=== PATIENT | male | born 1960 | race Caucasian/White ===

== ENCOUNTER 2016-08-14 10:29 | Inpatient (IN) | payer SELFPAY ==
[~2016-08-14] VITALS: Ht 172.7 cm; Wt 81.6 kg
[~2016-08-14 10:29] MED LIST: IOHEXOL-300 100 ML BOTTLE ONE; SODIUM CHLORIDE 0.9% 10ML VIAL ONE
[2016-08-14] MEDS ORDERED: SODIUM CHLORIDE 0.9% 1,000 ML IV ONE (11:05)
[2016-08-14 11:25] LABS: BASOPHILS % 0.3 % (0.0-2.0); EOSINOPHILS % 0.1 % (0.0-5.0); HEMATOCRIT. 39.3 % (42.0-52.0); LYMPHOCYTES % 11.4 % (20.0-50.0); MEAN CORPUSCULAR HEMOGLOBIN 25.8 pg (28.0-32.0); MEAN CORPUSCULAR VOLUME 78.1 fL (80.0-94.0); MEAN PLATELET VOLUME 8.7 fl (7.4-10.4); MONOCYTES % 9.3 % (2.0-8.0); NEUTROPHILS % 78.9 % (40.0-76.0); PLATELET 159 x1000/uL (130-400); RED BLOOD CELL COUNT 5.03 mill/uL (4.7-6.1); RED CELL DISTRIBUTION WIDTH 14.9 % (11.6-14.6)
[2016-08-14 11:26] LABS: CHLORIDE 101 mEq/L (98-107)
[2016-08-14 11:32] LABS: CARBON DIOXIDE 29 mEq/L (21-32)
[2016-08-14 11:37] LABS: TROPONIN I < 0.02 ng/mL (0.00-0.04)
[2016-08-14] MEDS ORDERED: ONDANSETRON HCL 4MG/2ML VIAL IV ONE (14:45)
[2016-08-14] MEDS ORDERED: MORPHINE SULFATE 2 MG/ML CPJ (NOT FOR IM USE) IV ONE (14:45)
[2016-08-14] MEDS ORDERED: HYDROCODONE/ACETAMINOPHEN 5/325MG TABLET PO PRN (15:00)
[2016-08-14] MEDS ORDERED: IPRATROPIUM/ALBUTEROL 0.5-3(2.5)MG/3ML NEB INH PRN (15:00)
[2016-08-14] MEDS ORDERED: DOCUSATE SODIUM 100MG CAPSULE PO PRN (15:00)
[2016-08-14] MEDS ORDERED: DIPHENHYDRAMINE 50MG/ML VIAL IV PRN (15:00)
[2016-08-14] MEDS ORDERED: ONDANSETRON HCL 4MG/2ML VIAL IV PRN (15:00)
[2016-08-14] MEDS ORDERED: METRONIDAZOLE 500 MG PREMIX 100 ML IV ONE (15:00)
[2016-08-14] MEDS ORDERED: HYDROMORPHONE HCL/PF 2MG/ML CPJ IV PRN (15:00)
[2016-08-14] MEDS ORDERED: LORAZEPAM 2MG/ML CPJ IV PRN (15:00)
[2016-08-14] MEDS ORDERED: ACETAMINOPHEN 325MG TABLET PO PRN (15:00)
[2016-08-14] MEDS ORDERED: LEVOFLOXACIN 500MG PREMIX 100 ML IV ONE (15:00)
[2016-08-14] MEDS ORDERED: MAGNESIUM/ALUMINUM HYDROXIDE/SIMETHICONE 30ML UDC PO PRN (15:00)
[2016-08-14] MEDS ORDERED: CLONIDINE 0.1MG TABLET PO PRN (15:00)
[2016-08-14] MEDS ORDERED: GUAIFENESIN 200MG/10ML SUGAR FREE UDC PO PRN (15:00)
[2016-08-14] MEDS ORDERED: NA PHOS,M-B/NA PHOS,DI-BA ENEMA 118ML PR PRN (15:00)
[2016-08-14 15:31] LABS: CHLORIDE 105 mEq/L (98-107)
[2016-08-14 15:38] LABS: CARBON DIOXIDE 28 mEq/L (21-32)
[2016-08-14 17:30] VITALS: BP 131/94
[2016-08-14] MEDS: ENOXAPARIN 40MG/0.4ML SYR SUBCUT SCH (17:48)
[2016-08-14] MEDS: SODIUM CHLORIDE 0.45% 1,000 ML IV SCH (17:48)
[2016-08-14 20:00] VITALS: BP 115/75
[2016-08-14] MEDS: METRONIDAZOLE 500 MG PREMIX 100 ML IV SCH (20:28)
[2016-08-15] VITALS: BP 110/68
[2016-08-15 04:00] VITALS: BP 118/78
[2016-08-15 05:30] LABS: HEMATOCRIT. 36.8 % (42.0-52.0); HEMOGLOBIN. 12.2 g/dL (14.0-18.0); MEAN CORPUSCULAR VOLUME 78.7 fL (80.0-94.0); MEAN PLATELET VOLUME 9.6 fl (7.4-10.4); PLATELET 161 x1000/uL (130-400); RED BLOOD CELL COUNT 4.68 mill/uL (4.7-6.1); RED CELL DISTRIBUTION WIDTH 14.6 % (11.6-14.6)
[2016-08-15] MEDS: METRONIDAZOLE 500 MG PREMIX 100 ML IV SCH ×3 (05:47→21:44)
[2016-08-15] MEDS: SODIUM CHLORIDE 0.45% 1,000 ML IV SCH ×2 (05:48→18:16)
[2016-08-15 06:18] LABS: CARBON DIOXIDE 29 mEq/L (21-32); CHLORIDE 105 mEq/L (98-107)
[2016-08-15 06:19] LABS: HDL CHOLESTEROL 53 mg/dL (40-59); LDL CHOLESTEROL 104 mg/dL (5-100); TROPONIN I < 0.02 ng/mL (0.00-0.04)
[2016-08-15 08:00] VITALS: BP 104/69
[2016-08-15 11:54] LABS: PLATELET ESTIMATE NORMAL
[2016-08-15 12:00] VITALS: BP 103/69
[2016-08-15] MEDS ORDERED: LEVOFLOXACIN 500MG PREMIX 100 ML IV SCH ×2 (14:00)
[2016-08-15 16:03] VITALS: BP 103/74
[2016-08-15] MEDS: ENOXAPARIN 40MG/0.4ML SYR SUBCUT SCH (17:11)
[2016-08-15 20:00] VITALS: BP 116/79
[2016-08-16] VITALS: BP 116/75
[2016-08-16 04:00] VITALS: BP 120/79
[2016-08-16] MEDS: SODIUM CHLORIDE 0.45% 1,000 ML IV SCH (05:41)
[2016-08-16] MEDS: METRONIDAZOLE 500 MG PREMIX 100 ML IV SCH (05:41)
[2016-08-16 07:58] VITALS: BP 105/67
[2016-08-16 10:25] VITALS: BP 103/68
== END 2016-08-16 11:40 | disposition home or self-care (01) | DRG 249 ==
LOC: ER 10:44 → 7WST 14:54
PROVIDERS: ADMIT Internal Medicine; ATTEND Internal Medicine
DX: K52.9 Noninfective gastroenteritis and colitis, unspecified (principal); G93.41 Metabolic encephalopathy; R65.10 Systemic inflammatory response syndrome (SIRS) of non-infectious origin without acute organ dysfunction; E87.8 Other disorders of electrolyte and fluid balance, not elsewhere classified; R55 Syncope and collapse; E86.9 Volume depletion, unspecified; E86.0 Dehydration; K57.92 Diverticulitis of intestine, part unspecified, without perforation or abscess without bleeding; R61 Generalized hyperhidrosis
CPT/HCPCS: 36415; 70450; 74177; 80048; 80053; 80061; 84484; 85025; 87493; 93005; 96361; 96365; 96375; 99285; A4216; J1650; J1956; J2270; J2405; J3490; J7030; J7050; Q9967